=== PATIENT | female | born 1970 | race Caucasian/White ===

== ENCOUNTER → 2016-08-16 | Outpatient (CLI) | payer BC ==
--- NOTE | 2016-08-16 15:40 | REPMRS ---
Patient History The patient states she had a clinical breast exam in 08/2016. Patient is postmenopausal. Family history of endometrial cancer in maternal grandmother. Taking unspecified hormones for 2 years beginning at age 43. Digital Woman Screen Mammo: August 16, 2016 - Exam #: [id number] Bilateral CC and MLO view(s) were taken. Technologist: La Aviles, Technologist Prior study comparison: July 19, 2015, digital woman screen mammo performed at [facility] to [facility]. May 06, 2014, digital woman screen mammo performed at [facility] to [facility]. FINDINGS: There are scattered fibroglandular densities. There has been no change in the appearance of the mammogram from the prior studies. There is a mild amount of residual fibroglandular tissue which is fairly symmetric. There is no interval development of dominant mass, architectural distortion, or clustered microcalcification suggestive of malignancy. ASSESSMENT: BI-RADS/ACR category 1 mammogram. Negative. Recommendation Routine screening mammogram in 1 year (for women over age 40). This mammogram was interpreted with the aid of an FDA-approved computer-aided dectection system. Electronically Signed By: Des Rivers MD 08/16/16 [id number]
== END ==
LOC: M WHC 14:12
PROVIDERS: ATTEND Nurse Practitioner Family
DX: Z12.31 Encounter for screening mammogram for malignant neoplasm of breast (principal); Z78.0 Asymptomatic menopausal state; Z92.0 Personal history of contraception

== ENCOUNTER → 2017-05-21 | Outpatient (REF) | payer BC | LOC: M LAB REF 20:34 | DX: J02.9 Acute pharyngitis, unspecified (principal) | CPT/HCPCS: 87081 ==

== ENCOUNTER → 2018-05-05 | Outpatient (CLI) | payer BC ==
--- NOTE | 2018-05-05 13:44 | REPMRS ---
Patient History The patient states she had a clinical breast exam in 04/2018. Patient is postmenopausal. Family history of endometrial cancer in maternal grandmother. Taking unspecified hormones for 4 years beginning at age 43. 3D TOMOSYNTHESIS WAS PERFORMED. Digital Woman Screen Mammo: May 05, 2018 - Exam #: [id number] Bilateral CC and MLO view(s) were taken. Technologist: La Aviles, Technologist Prior study comparison: August 16, 2016, digital woman screen mammo performed at [facility] to [facility]. July 19, 2015, digital woman screen mammo performed at [facility] to [facility]. FINDINGS: There are scattered fibroglandular densities. There has been no change in the appearance of the mammogram from the prior studies. There is a mild amount of residual fibroglandular tissue which is fairly symmetric. There is no interval development of dominant mass, architectural distortion, or clustered microcalcification suggestive of malignancy. Assessment: BI-RADS/ACR category 1 mammogram. Negative Mammogram. Recommendation Routine screening mammogram in 1 year (for women over age 40). This mammogram was interpreted with the aid of an FDA-approved computer-aided dectection system. Electronically Signed By: Des Rivers MD 05/05/18 0722
== END ==
LOC: M WHC 11:13
PROVIDERS: ATTEND Nurse Practitioner Family
DX: Z12.31 Encounter for screening mammogram for malignant neoplasm of breast (principal); Z78.0 Asymptomatic menopausal state

== ENCOUNTER → 2019-05-06 | Outpatient (CLI) | payer BC ==
--- NOTE | 2019-05-06 18:06 | REPMRS ---
Patient History The patient states she had a clinical breast exam in April 2019.Family history of endometrial cancer in maternal grandmother. Taking unspecified hormones for 4 years beginning at age 43. 3D TOMOSYNTHESIS WAS PERFORMED. [facility] lifetime risk for breast cancer is 6.6%. Digital Woman Screen Mammo: May 06, 2019 - Exam #: [id number] Bilateral CC and MLO view(s) were taken. Technologist: Leila Reyna, Technologist Prior study comparison: May 05, 2018, bilateral digital woman screen mammo performed at [facility]. August 16, 2016, digital woman screen mammo performed at [facility]. FINDINGS: There are scattered fibroglandular densities. There has been no change in the appearance of the mammogram from the prior studies. There is a mild amount of residual fibroglandular tissue which is fairly symmetric. There is no interval development of dominant mass, architectural distortion, or clustered microcalcification suggestive of malignancy. Assessment: BI-RADS/ACR category 1 mammogram. Negative Mammogram. Recommendation Routine screening mammogram in 1 year (for women over age 40). This mammogram was interpreted with the aid of an FDA-approved computer-aided dectection system. Electronically Signed By: Des Rivers MD 05/06/19 [id number]
== END ==
LOC: M WHC 11:08
PROVIDERS: ATTEND Nurse Practitioner Family
DX: Z12.31 Encounter for screening mammogram for malignant neoplasm of breast (principal); Z12.4 Encounter for screening for malignant neoplasm of cervix

== ENCOUNTER → 2019-06-06 | Outpatient (CLI) | payer BC ==
--- NOTE | 2019-06-09 20:37 | SLEEPCENT ---
DATE OF PROCEDURE: 06/06/2019 ORDERED BY: RAFAEL Arguello Nocturnal polysomnography was performed for re-titration of pressure therapy in this patient with obstructive sleep apnea syndrome. For testing a Mustbin Simplus full-face mask of small size was used. An initial bilevel pressure of 14 over 10 was applied to the circuit and the lights were extinguished. 7 hours and 58 minutes of data were reviewed. There were 381 minutes of sleep identified. Sleep latency was short at 6.5 minutes. Rapid eye movement (REM) latency was mildly prolonged at 123.5 minutes. Sleep architecture was good with three REM cycles. Overall sleep efficiency 82.3%. The electrocardiogram showed a sinus rhythm with an average heart rate of 78 beats per minute. EEG showed normal waveforms for awake and sleep. Persistence of respiratory events prompted increases in pressure therapy. Optimal sleep was seen on a bilevel pressure of inspiratory 20 over expiratory 15. There was also some activity noted in the limb EMG leads. Limb movement arousal index was 6.6. IMPRESSION: Obstructive sleep apnea syndrome (G47.33). RECOMMENDATIONS: Nightly use of pressure therapy using a bilevel device inspiratory 20 over expiratory of 15.
== END ==
LOC: M SLEEP 20:00
PROVIDERS: ATTEND Nurse Practitioner Adult Health
DX: G47.33 Obstructive sleep apnea (adult) (pediatric) (principal)

== ENCOUNTER → 2020-10-25 | Outpatient (CLI) | payer BC ==
--- NOTE | 2020-10-25 11:53 | REPMRS ---
Patient History The patient states she had a clinical breast exam in 10/2020. Patient is postmenopausal. Family history of endometrial cancer in maternal grandmother. Took unspecified hormones for 4 years beginning at age 43. Patient states no breast complaints today. Patient has signed MRS History Sheet. Digital Woman Screen Mammo: October 25, 2020 - Exam #: [id number] Bilateral CC and MLO view(s) were taken. Technologist: La Aviles, Technologist Prior study comparison: May 06, 2019, bilateral digital woman screen mammo performed at [facility]. May 05, 2018, bilateral digital woman screen mammo performed at [facility]. August 16, 2016, digital woman screen mammo performed at [facility]. FINDINGS: The breast tissue is almost entirely fat. The [employer] volumetric breast density category is: A. There has been no change in the appearance of the mammogram from the prior studies. There is no interval development of dominant mass, architectural distortion, or grouped microcalcification typical of malignancy. 3-D tomosynthesis shows no additional findings. Assessment: BI-RADS/ACR category 1 mammogram. Negative Mammogram. Recommendation Routine screening mammogram of both breasts in 1 year (for women over age 40). This patient's [facility] Lifetime Breast Cancer RIsk is estimated at 6.4 %. This mammogram was interpreted with the aid of an FDA-approved computer-aided dectection system. Electronically Signed By: Jason Bee MD 10/25/20 2286
== END ==
LOC: M WHC 10:42
PROVIDERS: ATTEND Nurse Practitioner Women's Health
DX: Z12.31 Encounter for screening mammogram for malignant neoplasm of breast (principal)

== ENCOUNTER → 2022-03-15 | Outpatient (REF) | payer OTHER | LOC: M LAB REF 15:25 | PROVIDERS: ATTEND Surgery | DX: L72.11 Pilar cyst (principal); D17.1 Benign lipomatous neoplasm of skin and subcutaneous tissue of trunk ==

== ENCOUNTER → 2022-04-04 | Outpatient (CLI) | payer OTHER ==
[~2022-04-04] MED LIST: E-Z-GAS II EFFERVESCENT PACKET (SODIUM BICARB./CITRIC ACID/SIMETHICONE) As Ordered ONE; E-Z-HD 98% w/w 340GM SUSP BTL As Ordered ONE; E-Z-PAQUE 96% w/w SUSP 176GM BTL As Ordered ONE
== END ==
LOC: M RAD 08:18
PROVIDERS: ATTEND Nurse Practitioner Family
DX: K91.1 Postgastric surgery syndromes (principal)

== ENCOUNTER 2022-08-03 11:23 | Emergency (ER) | payer OTHER ==
[~2022-08-03] VITALS: Ht 152.4 cm; Wt 89.5 kg
[2022-08-03] MEDS ORDERED: ONDANSETRON 4MG 2ML VIAL IV ONE (11:45)
[2022-08-03] MEDS: MORPHINE 4 MG/ML 1ML VIAL IV PRN ×2 (12:06→12:44)
[2022-08-03 12:17] LABS: HEMATOCRIT 42.4 % (36.0-47.0); MEAN CORPUSCULAR HEMOGLOBIN 30.8 pg (27.0-33.0); MEAN CORPUSCULAR VOLUME 93.2 fl (80.0-96.0); PLATELET COUNT, AUTOMATED 475 10^3/uL (150-450); RED BLOOD COUNT 4.55 10^6/uL (4.00-5.40); WHITE BLOOD COUNT 17.1 10^3/uL (4.0-10.0)
[2022-08-03 12:42] LABS: BLOOD UREA NITROGEN 19 MG/DL (9-23); CALCIUM LEVEL 9.4 MG/DL (8.5-10.1); CARBON DIOXIDE LEVEL 21 MMOL/L (20-31); CHLORIDE LEVEL 101 MMOL/L (98-107); CREATININE FOR GFR 0.71 MG/DL (0.55-1.30); GLOMERULAR FILTRATION RATE > 60.0 (>51); GLUCOSE, FASTING 131 MG/DL (60-100); POTASSIUM SERUM 4.7 MMOL/L (3.5-5.1); SODIUM LEVEL 137 MMOL/L (136-145)
[2022-08-03] MEDS ORDERED: AZIT-12 (12:56)
[2022-08-03] MEDS ORDERED: FLUC150T9 (12:56)
[2022-08-03] MEDS ORDERED: BIOT2500 PO (12:56)
[2022-08-03] MEDS ORDERED: COLE3.755 PO (12:56)
[2022-08-03] MEDS ORDERED: BUPR-71 (12:56)
[2022-08-03] MEDS ORDERED: LORA-674 PO (12:56)
[2022-08-03] MEDS ORDERED: FLUO20CA22 (12:56)
[2022-08-03] MEDS ORDERED: ATOR1TAB19 (12:56)
[2022-08-03] MEDS ORDERED: QUET50TA4 (12:56)
[2022-08-03] MEDS ORDERED: B-12100010 PO (12:56)
[2022-08-03] MEDS ORDERED: VITA100T59 PO (12:56)
[2022-08-03] MEDS ORDERED: VITMTA PO (12:56)
[2022-08-03] MEDS ORDERED: CLON-412 (12:56)
[2022-08-03] MEDS ORDERED: PERCOCET 5MG/325MG TAB PO ONE (13:00)
[2022-08-03] MEDS ORDERED: PERC5TAB12 PO (13:09)
[2022-08-03 14:56] VITALS: BP 122/72
== END 2022-08-03 16:04 | disposition home or self-care (01) ==
LOC: M ED 11:23 → EDSEX 11:23 → EDBD 11:23 → M ED 16:04
DX: S42.255A Nondisplaced fracture of greater tuberosity of left humerus, initial encounter for closed fracture (principal); W01.0XXA Fall on same level from slipping, tripping and stumbling without subsequent striking against object, initial encounter; I10 Essential (primary) hypertension; F32.A Depression, unspecified; E28.2 Polycystic ovarian syndrome; E78.5 Hyperlipidemia, unspecified; Z79.810 Long term (current) use of selective estrogen receptor modulators (SERMs); Z79.02 Long term (current) use of antithrombotics/antiplatelets; Z79.899 Other long term (current) drug therapy; Y92.009 Unspecified place in unspecified non-institutional (private) residence as the place of occurrence of the external cause; Z88.2 Allergy status to sulfonamides; Z88.8 Allergy status to other drugs, medicaments and biological substances
CPT/HCPCS: 70450; 71045; 72125; 73030; 73080; 80048; 85027; 93005; 96374; 96375; 96376; 99284; J2405

== ENCOUNTER → 2022-08-06 | Outpatient (CLI) | payer OTHER ==
[~2022-08-06] MED LIST changes: +ATOR1TAB19; +AZIT-12; +B-12100010 PO; +BIOT2500 PO; +BUPR-71; +CLON-412; +COLE3.755 PO; -E-Z-GAS II EFFERVESCENT PACKET (SODIUM BICARB./CITRIC ACID/SIMETHICONE) As Ordered ONE; -E-Z-HD 98% w/w 340GM SUSP BTL As Ordered ONE; -E-Z-PAQUE 96% w/w SUSP 176GM BTL As Ordered ONE; +FLUC150T9; +FLUO20CA22; +LORA-674 PO; +PERC5TAB12 PO; +QUET50TA4; +VITA100T59 PO; +VITMTA PO
== END ==
LOC: M SOG 16:02
PROVIDERS: ATTEND Orthopaedic Surgery Hand Surgery
DX: M25.512 Pain in left shoulder (principal); S42.212A Unspecified displaced fracture of surgical neck of left humerus, initial encounter for closed fracture; X58.XXXA Exposure to other specified factors, initial encounter; Y92.9 Unspecified place or not applicable; Y93.9 Activity, unspecified; Y99.9 Unspecified external cause status

== ENCOUNTER → 2022-08-07 | Outpatient (CLI) | payer OTHER | LOC: M PLAIMG 10:59 | PROVIDERS: ATTEND Orthopaedic Surgery Hand Surgery | DX: S42.202A Unspecified fracture of upper end of left humerus, initial encounter for closed fracture (principal) ==

== ENCOUNTER → 2022-08-27 | Outpatient (CLI) | payer OTHER | LOC: M SOG 11:40 | PROVIDERS: ATTEND Physician Assistant | DX: S42.232A 3-part fracture of surgical neck of left humerus, initial encounter for closed fracture (principal); X58.XXXA Exposure to other specified factors, initial encounter; Y92.9 Unspecified place or not applicable; Z53.9 Procedure and treatment not carried out, unspecified reason ==

== ENCOUNTER → 2022-08-28 | Outpatient (CLI) | payer OTHER | LOC: M SOG 08:15 | PROVIDERS: ATTEND Physician Assistant | DX: S42.232D 3-part fracture of surgical neck of left humerus, subsequent encounter for fracture with routine healing (principal) ==

== ENCOUNTER → 2022-09-18 | Outpatient (CLI) | payer OTHER | LOC: M SOG 13:16 | PROVIDERS: ATTEND Orthopaedic Surgery Hand Surgery | DX: S42.232D 3-part fracture of surgical neck of left humerus, subsequent encounter for fracture with routine healing (principal) ==

== ENCOUNTER → 2022-10-19 | Outpatient (CLI) | payer OTHER | LOC: M SOG 08:28 | PROVIDERS: ATTEND Physician Assistant | DX: Z53.9 Procedure and treatment not carried out, unspecified reason (principal) ==